=== PATIENT | female | born 1960 | race Caucasian/White ===

== ENCOUNTER 2018-12-13 09:51 | Emergency (ER) | payer OTHER ==
[~2018-12-13] VITALS: Ht 170.2 cm; Wt 124.3 kg
[2018-12-13 09:57] VITALS: BP 187/96
[2018-12-13] MEDS ORDERED: PREDNISONE 5 MG5 M1 PO (10:02)
[2018-12-13] MEDS ORDERED: METHOTREXA25 MG/1 M3 IM (10:02)
[2018-12-13] MEDS ORDERED: FOLIC ACID1 MG PO (10:09)
[2018-12-13] MEDS ORDERED: FLEXERIL PO (10:09)
[2018-12-13] MEDS ORDERED: NORVASC5 MG PO (10:10)
[2018-12-13] MEDS ORDERED: CELEXA20 MG PO (10:10)
[2018-12-13] MEDS ORDERED: OMEPRAZOLE 20 M20 M1 PO (10:11)
[2018-12-13] MEDS ORDERED: ACYCLOVIR 200200 MG PO (10:43)
[2018-12-13] MEDS ORDERED: PREDNISONE 5 MG5 MG PO (10:43)
[2018-12-13] MEDS ORDERED: HYDROCODON-ACE1 EAC7 PO (10:43)
--- NOTE | 2018-12-15 13:07 | EKG ---
[place] [address] ELECTROCARDIOGRAM REPORT Name: MITUL MATA [id number] Admission: 12/13/18 Attend Phys: Discharge: 12/13/18 Date of : 56 Report #: [id number] THIS REPORT FOR: //name// [facility] ED Test Date: 2018-12-13 Test Time: 09:57:37 Pat Name: MITUL MATA Department: Room: Gender: F Child Nurse: : 1960 Requested By: Sonny Dawn Order Number: [id number] MD: Ted Singer Measurements Intervals [place] Rate: 87 P: 40 [place]: 156 QRS: 21 QRSD: 97 T: 73 QT: 338 QTc: 407 Interpretive Statements Sinus rhythm No previous ECG available for comparison Electronically Signed On 12-15-2018 13:07:07 CDT by Ted Singer [email or web address] <ELECTRONICALLY SIGNED> By: Ted Singer MD, [facility] 12/15/18 1307 0957 0957 Ted Singer MD, FACC /EPI
== END 2018-12-13 10:56 | disposition home or self-care (01) ==
LOC: M.ERS 09:51
DX: B02.9 Zoster without complications (principal); M06.9 Rheumatoid arthritis, unspecified

== ENCOUNTER 2019-02-19 10:07 | Emergency (ER) | payer OTHER ==
[~2019-02-19] VITALS: Ht 170.2 cm; Wt 121.6 kg
[~2019-02-19 10:07] MED LIST: ACYCLOVIR 200200 MG PO; CELEXA20 MG PO; FLEXERIL PO; FOLIC ACID1 MG PO; HYDROCODON-ACE1 EAC7 PO; METHOTREXA25 MG/1 M3 IM; NORVASC5 MG PO; OMEPRAZOLE 20 M20 M1 PO; PREDNISONE 5 MG5 M1 PO; PREDNISONE 5 MG5 MG PO
[2019-02-19] MEDS ORDERED: NORCO 5-325 TA1 EAC1 PO (11:19)
[2019-02-19] MEDS ORDERED: PREDNISONE 10 M10 MG PO (11:19)
[2019-02-19 11:30] VITALS: BP 168/90
== END 2019-02-19 11:33 | disposition home or self-care (01) ==
LOC: M.ERS 10:07
DX: M06.9 Rheumatoid arthritis, unspecified (principal)

== ENCOUNTER 2019-06-08 14:43 | Emergency (ER) | payer OTHER ==
[~2019-06-08] VITALS: Ht 170.2 cm; Wt 127.0 kg
[~2019-06-08 14:43] MED LIST changes: +NORCO 5-325 TA1 EAC1 PO; +PREDNISONE 10 M10 MG PO
[2019-06-08] MEDS ORDERED: NORCO 5-325 TA1 EAC1 PO (15:17)
[2019-06-08 15:37] VITALS: BP 150/94
== END 2019-06-08 15:39 | disposition home or self-care (01) ==
LOC: M.ERS 14:43
DX: M06.851 Other specified rheumatoid arthritis, right hip (principal); I10 Essential (primary) hypertension

== ENCOUNTER 2020-01-22 09:32 | Emergency (ER) | payer OTHER ==
[~2020-01-22] VITALS: Ht 170.2 cm; Wt 99.3 kg
[2020-01-22] MEDS ORDERED: NORCO 5-325 TA1 EAC2 PO (10:09)
[2020-01-22 10:14] VITALS: BP 159/74
== END 2020-01-22 10:14 | disposition home or self-care (01) ==
LOC: M.ERS 09:32
DX: G89.29 Other chronic pain (principal); I10 Essential (primary) hypertension; M06.9 Rheumatoid arthritis, unspecified

== ENCOUNTER 2020-02-10 12:28 | Inpatient (IN) | payer OTHER ==
[2020-02-10] VITALS (8 sets, daily range): BP systolic 81–153; BP diastolic 35–95
[~2020-02-10] VITALS: Ht 170.2 cm; Wt 100.2 kg
[~2020-02-10 12:28] MED LIST changes: +NORCO 5-325 TA1 EAC2 PO
[2020-02-10 12:50] LABS: HEMATOCRIT 37.4 % (37.0-47.0); HEMOGLOBIN 12.5 gm/dL (12.0-15.0); MCH 32.9 pg (26.0-34.0); MCHC 33.6 g/dL (28.0-37.0); MCV 97.9 fL (80.0-100.0); MPV 8.1 fl. (7.2-11.1); NUCLEATED RBCS 0 /100WBC; PLATELET COUNT* 315 thou/uL (150-400); RBC 3.82 mil/uL (4.20-5.00); RDW-CV 16.2 % (10.5-14.5); WBC 14.2 thou/uL (4.0-11.0)
[2020-02-10 13:00] LABS: CALCIUM 9.3 mg/dL (8.5-10.1); CREATININE 1.4 mg/dL (0.6-1.3); POTASSIUM 3.2 mmol/L (3.5-5.1)
[2020-02-10 13:03] LABS: APTT 22.9 Seconds (25.0-31.3); PROTIME 9.9 Seconds (9.20-11.50)
[2020-02-10 13:13] LABS: ALBUMIN 3.8 g/dL (3.4-5.0); CK-MB MASS 150.3 ng/mL (<0.5-3.6); MAGNESIUM 1.8 mg/dL (1.8-2.4); TOTAL BILIRUBIN 0.4 mg/dL (<0.1-1.0); TOTAL PROTEIN 7.7 g/dL (6.4-8.2)
[2020-02-10 13:19] LABS: ABSOLUTE LYMPHOCYTES 2.1 thou/uL (0.8-5.3); ABSOLUTE MONOCYTES 0.9 thou/uL (0.0-1.2); ABSOLUTE NEUTROPHILS 11.2 thou/uL (1.6-8.1); ANISOCYTOSIS 1+; PLATELET ESTIMATE ADEQUATE; POIKILOCYTOSIS 1+; POLYCHROMASIA Occasional
[2020-02-10 13:30] LABS: CHOLESTEROL 233 mg/dL (<200); HDL CHOLESTEROL 37 mg/dL (>40); LDL CHOLESTEROL 144 mg/dL (<100); TC:HDL 6.3 Ratio (Not establshd); TRIGLYCERIDE 260 mg/dL (<150); VLDL 52 mg/dL (<40)
[2020-02-10 13:33] LABS: SERUM ASSESSMENT Slight Lipemia
--- NOTE | 2020-02-10 17:50 | EKG ---
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 : 1960 Requested By: Josh Chavez Order Number: [id number] MD: Solitario Mac Measurements Intervals [place] Rate: 64 P: 33 [place]: 178 QRS: 45 QRSD: 112 T: 5 QT: 399 QTc: 412 Interpretive Statements Sinus rhythm Posterior infarct, acute (LCx) Lateral infarct, acute Minimal ST elevation, inferior leads Compared to ECG 12/13/2018 09:57:37 Myocardial infarct finding now present ST (T wave) deviation now present Electronically Signed On 02-10-2020 17:49:54 CDT by Solitario Mac [email or web address] <ELECTRONICALLY SIGNED> By: Solitario Mac MD, FACC 02/10/20 1749 1236 1236 Solitario Mac MD, FACC /EPI
[2020-02-11] VITALS (11 sets, daily range): BP systolic 84–155; BP diastolic 31–135
[2020-02-11 04:02] LABS: MCH 32.5 pg (26.0-34.0); MCHC 33.3 g/dL (28.0-37.0); MCV 97.6 fL (80.0-100.0); MPV 8.2 fl. (7.2-11.1); RBC 3.38 mil/uL (4.20-5.00); RDW-CV 15.9 % (10.5-14.5); WBC 16.2 thou/uL (4.0-11.0)
[2020-02-11 04:35] LABS: ALBUMIN 3.3 g/dL (3.4-5.0); CREATININE 1.1 mg/dL (0.6-1.3); POTASSIUM 4.1 mmol/L (3.5-5.1); TOTAL BILIRUBIN 0.4 mg/dL (<0.1-1.0); TOTAL PROTEIN 7.1 g/dL (6.4-8.2)
--- NOTE | 2020-02-11 15:11 | 2DMMODE ---
[place] [address] 2 D/M-MODE ECHOCARDIOGRAM Name: MITUL MATA Room: [address] ADM IN M.R.#: [id number] Admission: 02/10/20 Attend Phys: Simeon Jerez, Discharge: Date of : 56 Date of Service: 02/11/20 1511 Report #: [id number] THIS REPORT FOR: cc: Physician not on staff Physician not on staff Kingsley Ruiz MD [facility] ~ APPROVED REPORT Study performed: 02/11/2020 09:07:57 EXAM: Comprehensive 2D, Doppler, and color-flow Echocardiogram Patient Location: ICU BSA: 2.11 HR: 62 bpm BP: 104/59 mmHg Other Information Study Quality: Adequate Indications Myocardial Infarction 2D Dimensions IVSd: 19.68 (7-11mm) LVOT Diam: 22.54 (18-24mm) LVDd: 43.52 mm PWd: 12.21 (7-11mm) Ascending Ao: 31.97 (22-36mm) LVDs: 32.62 (25-40mm) Aortic Root: 28.39 mm Volumes Left Atrial Volume (Systole) LA ESV Index: 25.30 mL/m2 Aortic Valve AoV Peak Duke.: 1.04 m/s AO Peak Gr.: 4.35 mmHg LVOT Max P.26 mmHg AO Mean Gr.: 2.43 mmHg LVOT Mean P.00 mmHg LVOT Max V: 1.03 m/s AO V2 VTI: 19.54 cm LVOT Mean V: 0.65 m/s ABDIAS (VTI): 4.01 cm2 LVOT V1 VTI: 19.65 cm Mitral Valve E/A Ratio: 1.23 [place] [address] 2 D/M-MODE [facility]OCARDIOGRAM [facility] Room: [address] ADM IN M.R.#: [id number] Admission: 02/10/20 Attend Phys: Simeon Jerez, Discharge: Date of : 56 Date of Service: 02/11/20 1511 Report #: [id number] MV Decel. Time: 182.33 ms MV E Max Duke.: 0.98 m/s MV PHT: 52.88 ms MVA (PHT): 4.16 cm2 TDI E/Lateral E': 14.00 E/Medial E': 9.80 Medial E' Duke.: 0.10 m/s Lateral E' Duke.: 0.07 m/s Pulmonary Valve PV Peak Duke.: 0.99 m/s PV Peak Gr.: 3.92 mmHg Tricuspid Valve RAP Estimate: 5.00 mmHg TR Peak Gr.: 13.36 mmHg RVSP: 18.36 mmHg PA Pressure: 18.36 mmHg Left Ventricle The left ventricle is normal size. There are segmental wall motion abnormalities with inferobasilar and apical-lateral hypokinesis. Borderline concentric left ventricular hypertrophy. Left ventricular systolic function is mildly decreased. LVEF is 45%. The left ventricular diastolic function is normal. Right Ventricle The right ventricle is normal size. The right ventricular systolic function is normal. Atria The left atrium size is normal. The right atrium size is normal. Aortic Valve The aortic valve is normal in structure. No aortic regurgitation is present. There is no aortic valvular stenosis. Mitral Valve The mitral valve is normal in structure. Mild mitral regurgitation. No evidence of mitral valve stenosis. Tricuspid Valve The tricuspid valve is normal in structure. There is no tricuspid valve regurgitation [place] [address] 2 D/M-MODE ECHOCARDIOGRAM [facility] Room: [address] IN [facility].#: [id number] Admission: 02/10/20 Attend Phys: Simeon Jerez, Discharge: Date of : 56 Date of Service: 02/11/20 1511 Report #: [id number] The pulmonary valve is normal in structure. There is no pulmonic valvular regurgitation. Great Vessels The aortic root is normal in size. IVC is normal in size and collapses >50% with inspiration. Pericardium There is no pericardial effusion. <Conclusion> The left ventricle is normal size. Borderline concentric left ventricular hypertrophy. Left ventricular systolic function is mildly decreased. LVEF is 45%. The left ventricular diastolic function is normal. The right ventricle is normal size. The left atrium size is normal. The aortic valve is normal in structure. The mitral valve is normal in structure. Mild mitral regurgitation. The tricuspid valve is normal in structure. IVC is normal in size and collapses >50% with inspiration. There is no pericardial effusion. There are segmental wall motion abnormalities with inferobasilar and apical-lateral hypokinesis. <ELECTRONICALLY SIGNED> By: Kingsley Ruiz MD, FACC 02/11/20 151 10 10 Kingsley Ruiz MD, FACC /INF
--- NOTE | 2020-02-11 15:39 | EKG ---
[place] [address] ELECTROCARDIOGRAM REPORT Name: MITUL MATA Room: [address] ADM IN M.R.#: [id number] Admission: 02/10/20 Attend Phys: Simeon Jerez, Discharge: Date of : 56 Date of Service: 02/10/201851 Report #: [id number] THIS REPORT FOR: //name// [facility] Test Date: 2020-02-10 Test Time: 18:52:18 Pat Name: MITUL MATA Department: Room: [facility] Gender: F Scratch Finisher: BY ICU : 1960 Requested By: Kingsley Ruiz Order Number: [id number] Dianna MD: Solitario Mac Measurements Intervals [place] Rate: 73 P: 38 [place]: 126 QRS: 267 QRSD: 156 T: 69 QT: 494 QTc: 545 Interpretive Statements Sinus rhythm Nonspecific IVCD with LAD Inferior infarct, recent (LCx) Probable anterior infarct, recent Lateral leads are also involved Compared to ECG 02/10/2020 12:36:21 Intraventricular conduction delay now present Myocardial infarct finding still present ST (T wave) deviation still present Electronically Signed On 02-11-2020 15:39:18 CDT by Solitario Mac [email or web address] <ELECTRONICALLY SIGNED> By: Solitario Mac MD, FACC 02/11/20 1539 51 51 Solitario Mac MD, FACC /EPI
--- NOTE | 2020-02-11 16:56 | CARD ---
[address] [address] CARDIAC CATH REPORT Name: MITUL MATA Room: [address] ADM IN M.R.#: [id number] Admission: 02/10/20 Attend Phys: Simeon Jerez MD Discharge: Date of : 56 Report #: [id number] THIS REPORT FOR: //name// cc: Physician not on staff Physician not on staff ~ APPROVED REPORT Study performed: 02/10/2020 13:54:16 Patient Details Patient Status: ED Room #: The patient is a 59 year-old female Event Personnel Kingsley Ruiz Cpa Tax, Kayla Fuentes RN Sap Technical Developer, Simeon ChongubHitesh Becki RTR Monitor, Ivon Mancia RTR Monitor Procedures Performed Art Access - R femoral artery, Left Heart Cath w/or w/o Coronaries LHC, GEOVANNA Place w/wo Plasty Single CIRC , Hemostasis w/ Angioseal Indication Non-STEMI Risk Factors Obesity, Hypercholesterolemia Admission/Lab Medications/Medications given during procedure Angiomax IV 15 ml, Angiomax Drip IV 34.96 ml per hr, Nitroglycerin SL 0.4 mg, Nitroglycerin SL 0.4 mg, Adenosine IC 600 mcg, Effient PO 60 mg, Aspirin PO 162 mg Procedure Narrative The patient was brought emergently to the Cardiac Catheterization Laboratory and was prepped and draped in a sterile manner. The right femoral was infiltrated with 2% Lidocaine subcutaneous anesthesia. A 6F Roy sheath was inserted into the right femoral artery. Coronary angiography was performed using coronary diagnostic catheters. The right coronary system was accessed and visualized with a 6F JR4 catheter. The left coronary system was accessed and visualized with a 6F JL4 catheter. The left ventricle was accessed and visualized with a 6F Straight Pigtail catheter. Left ventricular/Aortic Valve gradient assessed [place] [address] CARDIAC CATH RE[facility] Room: [address] IN M.R.#: [id number] Admission: 02/10/20 Attend Phys: Simeon Jerez MD Discharge: Date of : 56 Report #: [id number] Pre-demployment femoral angiogram was performed . Closure device was deployed with a 6 Fr Angioseal STS. The patient tolerated the procedure well and there were no complications associated with the procedure. There was no hematoma. Intraoperative Conscious Sedation Sedation start time: 14:17 Case end Time: 16:23 Fentanyl 50 mcg Versed 4 mg Fluoro Time: 52.1 minutes Dose: DAP 333806 cGycm2 6899 mGy Contrast Type and Amount: Visipaque 520 ml Diagnostic Cath Left Main 0% narrowing LAD 90% focal mid vessel stenosis Circumflex 100% proximal occlusion with prominent intraluminal thrombus and subsequently defined marked tortuosity and calcification of the mid to distal circumflex Right Coronary Large dominant vessel with 30% proximal mid and distal narrowing Left Ventriculography Left Ventriculography was not performed. Hemodynamics The aortic pressure is 141/86 mmHg with a mean of 111 mmHg. The left ventricular pressure is 139/4 mmHg with a mean of mmHg. The left ventricular end diastolic pressure is 22 mmHg. PCI Technique Lesion Anticoagulation was achieved with Angiomax. Patient was preloaded with Angiomax IV 15 ml. Percutaneous coronary intervention was performed on the proximal circumflex artery segment. The lesion stenosis prior to intervention was 100% with CELI 0 flow. A 6FR LAUNCHER EBU 3.5 Guide Catheter was used to engage the lm ostium. A BMW 300cm Interventional Guidewire was used to cross the lesion. BALLOON DILATION A Balloon catheter Mini Trek RX 2.0 X 8 was inserted and inflated up to 5.00atm for 15seconds. A Finecross micro glide cather was used. Wires used 190 BMW, 300 BMW, 300 ProwaterFlex. A Mini Trek RX 1.2 x 8 balloon catheter was inserted and inflated up to 8 sally for 5 seconds; 8 sally for 6 seconds. A Mini Trek RX 1.5 x 8 [place] [address] CARDIAC CATH REPORT Name: ANNEMITUL CIFUENTES Room: [address] IN M.R.#: [id number] Admission: 02/10/20 Attend Phys: Simeon Jerez MD Discharge: Date of : 56 Report #: [id number] inserted and inflated up to 8 sally for 4 seconds; 10 sally for 8 seconds; 12 sally for 3 seconds. A Mini Trek RX 2.0 x 12 balloon catheter was inserted and inflated up to 8 sally for 3 seconds; 10 sally for 8 seconds; 8 sally for 4 seconds. A Trek RX 2.5 x 12 balloon catheter was inserted and inflated up to 8 sally for 6 seconds; 10 sally for 5 seconds. STENT DEPLOYMENT A drug-eluting stent [place] RX Stent 2.0X26mm was inserted and inflated up to 8.00atm for 6seconds. Additional Inflation: 10.00atm for 7seconds. Additional Inflation: 10.00atm for 7seconds. Final angiography reveals 15 % stenosis with CELI 3 flow. COMMENTS The PCI of the totally occluded circumflex was technically complex by virtue of marked calcification and tortuosity throughout the vessel with diffuse intraluminal thrombus. This required placement of a microcatheter distally with definition of intraluminal position with subsequent deployment of proximal mid and distal circumflex stents after significant lesion preparation. There was also requirement for proximal and distal infusion of intracoronary adenosine to alter micro- circulatory resistance and augment CELI flow. PCI Technique Lesion 2 Percutaneous Coronary Intervention was performed on the mid circumflex artery segment. Patient was preloaded with Angiomax IV 15 ml. The lesion stenosis prior to intervention was 100% with CELI 0 flow. A 6FR LAUNCHER EBU 3.5 Guide Catheter was used to engage the lm ostium. A BMW 300cm Interventional Guidewire was used to cross the lesion. Balloon Dilation A Balloon catheter Mini Trek RX 1.5 X 12 was inserted and inflated up to 10.00atm for 10seconds. Additional Inflation: 12.00atm for 3seconds. Additional Inflation: 14.00atm for 7seconds. Additional inflations up to 15 sally and 16 sally for 5-8 seconds. Stent Deployment A drug-eluting stent [place] RX Stent 2.0X26mm was inserted and inflated up to 8.00atm for 10seconds. Additional Inflation: 9.00atm for 7seconds. Additional Inflation: 9.00atm for 5seconds. Post Stent Deployment Balloon Dilation A Balloon catheter [place] Euphora 2.25x 12 was inserted and inflated up [facility] [address] [place] [address] CARDIAC CATH REPORT Name: MITUL MATA Room: [address] ADM IN M.R.#: [id number] Admission: 02/10/20 Attend Phys: Simeon Jerez MD Discharge: Date of : 56 Report #: [id number] to 15.00atm for 5seconds. Additional Inflation: 16.00atm for 6seconds. Additional Inflation: 18.00atm for 5seconds. Final angiography reveals 10 % stenosis with CELI 3 flow. PCI Technique Lesion 3 Percutaneous Coronary Intervention was performed on the distal circumflex artery segment. Patient was preloaded with Angiomax IV 15 ml. The lesion stenosis prior to intervention was 100% with CELI 0 flow. A 6FR LAUNCHER EBU 3.5 Guide Catheter was used to engage the lm ostium. A BMW 300cm Interventional Guidewire was used to cross the lesion. Stent Deployment A drug-eluting stent [place] RX Stent 2.0X18mm was inserted and inflated up to 8.00atm for 8seconds. Additional Inflation: 9.00atm for 6seconds. Additional Inflation: 15.00atm for 7seconds. Additional inflations 17 sally for 8 seconds; 18 sally for 6 seconds. Post Stent Deployment Balloon Dilation A Balloon catheter [place] Euphora 2.25x 12 was inserted and inflated up to 10.00atm for 6seconds. Additional Inflation: 10.00atm for 7seconds. Final angiography reveals 10 % stenosis with CELI 3 flow. Conclusion 1. Acute non-STEMI with total occlusion of the nondominant circumflex proximally 2. Severe coronary artery disease characterized by the following: A 100% proximal circumflex occlusion with prominent intraluminal thrombus and CELI 0 flow to the distal vessel B 90% mid LAD stenosis C 30% proximal mid and distal narrowing of the dominant right coronary artery 2. Moderate elevation of left ventricular end-diastolic pressure at rest 3. Successful PCI with deployment of drug-eluting stents in the proximal mid and distal circumflex with 10% residual narrowing CELI-3 [place] [address] CARDIAC CATH REPORT Name: [facility] Room: [address] IN M.R.#: [id number] Admission: 02/10/20 Attend Phys: Simeon Jerez MD Discharge: Date of : 56 Report #: [id number] flow to the distal vessel and no residual thrombus Recommendations Cardiac Risk Reduction Program Aggressive Medical Therapy Medications Administered Aspirin (any) Prasugrel Diagnostic Cath Approved by: Kingsley Ruiz MD Date/Time: 02/11/2020 16:54:04 <ELECTRONICALLY SIGNED> By: Kingsley Ruiz MD, [facility] 02/11/20 1656 55 [id number] Jacky Ruiz MD, FACC /INF
[2020-02-12] VITALS: BP 83/37
[2020-02-12 02:08] LABS: GLYCOHEMOGLOBIN (HGB A1C) 5.6 % (4.8-5.6)
[2020-02-12 04:00] VITALS: BP 108/35
[2020-02-12 05:19] LABS: CALCIUM 8.8 mg/dL (8.5-10.1); CREATININE 1.1 mg/dL (0.6-1.3); MAGNESIUM 2.1 mg/dL (1.8-2.4)
[2020-02-12 08:00] VITALS: BP 105/54
[2020-02-12] MEDS ORDERED: LIPITOR 40 MG T40 M1 PO (09:03)
[2020-02-12] MEDS ORDERED: EFFIENT10 MG PO (09:03)
[2020-02-12] MEDS ORDERED: ASPIR 8181 MG PO (09:03)
[2020-02-12] MEDS ORDERED: CARVEDILOL3.125 MG PO (09:03)
[2020-02-12] MEDS ORDERED: NITROGLYCERIN0.4 MG SUBLING (09:54)
[2020-02-12 12:06] VITALS: BP 120/51
[2020-02-12 14:25] VITALS: BP 123/71
[2020-02-12 15:10] VITALS: BP 123/71
== END 2020-02-12 15:50 | disposition home or self-care (01) | DRG 246 ==
LOC: M.CL 12:28 → M.ERS 12:28 → M.TBA-CV 15:32 → M.ICU 15:32 → M.2W 02-11 15:17
PROVIDERS: Family Medicine; Internal Medicine; Registered Nurse; ADMIT Internal Medicine; ATTEND Internal Medicine
PROC: B211YZZ Fluoroscopy of Multiple Coronary Arteries using Other Contrast (ICD-10-PCS; principal; 2020-02-10)
PROC: B41FYZZ Fluoroscopy of Right Lower Extremity Arteries using Other Contrast (ICD-10-PCS; principal; 2020-02-10)
PROC: 027036Z Dilation of Coronary Artery, One Artery with Three Drug-eluting Intraluminal Devices, Percutaneous Approach (ICD-10-PCS; principal; 2020-02-10)
PROC: 4A023N7 Measurement of Cardiac Sampling and Pressure, Left Heart, Percutaneous Approach (ICD-10-PCS; principal; 2020-02-10)
DX: I21.3 ST elevation (STEMI) myocardial infarction of unspecified site (principal); I50.21 Acute systolic (congestive) heart failure; R65.10 Systemic inflammatory response syndrome (SIRS) of non-infectious origin without acute organ dysfunction; N17.9 Acute kidney failure, unspecified; I13.0 Hypertensive heart and chronic kidney disease with heart failure and stage 1 through stage 4 chronic kidney disease, or unspecified chronic kidney disease; M06.9 Rheumatoid arthritis, unspecified; I25.110 Atherosclerotic heart disease of native coronary artery with unstable angina pectoris; M19.90 Unspecified osteoarthritis, unspecified site; F32.9 Major depressive disorder, single episode, unspecified; F41.1 Generalized anxiety disorder; E66.9 Obesity, unspecified; F17.210 Nicotine dependence, cigarettes, uncomplicated; F12.90 Cannabis use, unspecified, uncomplicated; E87.6 Hypokalemia; E11.65 Type 2 diabetes mellitus with hyperglycemia; F41.0 Panic disorder [episodic paroxysmal anxiety]; N18.2 Chronic kidney disease, stage 2 (mild); I95.2 Hypotension due to drugs; I25.5 Ischemic cardiomyopathy; E78.5 Hyperlipidemia, unspecified; Z82.49 Family history of ischemic heart disease and other diseases of the circulatory system; Z68.34 Body mass index [BMI] 34.0-34.9, adult; Z71.6 Tobacco abuse counseling; Z79.899 Other long term (current) drug therapy; Z20.828 Contact with and (suspected) exposure to other viral communicable diseases

== ENCOUNTER 2020-02-24 07:54 | Emergency (ER) | payer OTHER ==
[~2020-02-24] VITALS: Ht 170.2 cm; Wt 99.0 kg
[~2020-02-24 07:54] MED LIST changes: +ASPIR 8181 MG PO; +CARVEDILOL3.125 MG PO; +EFFIENT10 MG PO; +LIPITOR 40 MG T40 M1 PO; +NITROGLYCERIN0.4 MG SUBLING
[2020-02-24 08:15] LABS: ABSOLUTE EOSINOPHILS 0.3 thou/uL (0.0-0.7); ABSOLUTE LYMPHOCYTES 1.9 thou/uL (0.8-5.3); ABSOLUTE MONOCYTES 0.4 thou/uL (0.0-1.2); ABSOLUTE NEUTROPHILS 5.9 thou/uL (1.6-8.1); BASOPHILS 0.5 %; EOSINOPHILS 3.3 %; HEMATOCRIT 37.3 % (37.0-47.0); HEMOGLOBIN 12.3 gm/dL (12.0-15.0); LYMPHOCYTES 22.1 %; MCH 32.5 pg (26.0-34.0); MCHC 32.9 g/dL (28.0-37.0); MCV 98.6 fL (80.0-100.0); MONOCYTES 4.7 %; MPV 8.5 fl. (7.2-11.1); NUCLEATED RBCS 0 /100WBC; PLATELET COUNT* 369 thou/uL (150-400); POLYS 69.4 %; RBC 3.78 mil/uL (4.20-5.00); RDW-CV 15.2 % (10.5-14.5); WBC 8.5 thou/uL (4.0-11.0)
[2020-02-24 08:23] LABS: CALCIUM 9.4 mg/dL (8.5-10.1); CREATININE 1.5 mg/dL (0.6-1.3); POTASSIUM 4.1 mmol/L (3.5-5.1)
[2020-02-24 08:36] LABS: ALBUMIN 3.7 g/dL (3.4-5.0); CK-MB MASS 126.5 ng/mL (<0.5-3.6); TOTAL BILIRUBIN 0.6 mg/dL (<0.1-1.0)
[2020-02-24 08:37] LABS: APTT 21.8 Seconds (25.0-31.3); PROTIME 10.3 Seconds (9.20-11.50)
[2020-02-24 10:33] VITALS: BP 109/75
--- NOTE | 2020-02-24 13:49 | EKG ---
[place] [address] ELECTROCARDIOGRAM REPORT Name: MITUL MATA Room: [facility]#: [id number] Admission: 02/24/20 Attend Phys: Discharge: 02/24/20 Date of : 56 Date of Service: 02/24/20 0758 Report #: [id number] THIS REPORT FOR: //name// [facility] ED Test Date: 2020-02-24 Test Time: 07:58:06 Pat Name: MITUL MATA Department: Room: Gender: Home Visits Nurse: [place] : 1960 Requested By: Josh Chavez Order Number: [id number] MD: Kingsley Ruiz Measurements Intervals [place] Rate: 97 P: 26 [place]: 164 QRS: 115 QRSD: 96 T: 31 QT: 357 QTc: 454 Interpretive Statements Sinus rhythm Posterior infarct, indeterminate age Compared to ECG 02/10/2020 18:52:18 Intraventricular conduction delay no longer present Myocardial infarct finding still present Electronically Signed On 02-24-2020 13:48:50 CDT by Kingsley Ruiz [email or web address] <ELECTRONICALLY SIGNED> By: Kingsley Ruiz MD, [facility] 02/24/20 1348 0758 0758 Kingsley Ruiz MD, [facility] /EPI
== END 2020-02-24 10:33 | disposition home or self-care (01) ==
LOC: M.ERS 07:54
PROVIDERS: Family Medicine
DX: U07.1 COVID-19 (principal); R07.89 Other chest pain; I10 Essential (primary) hypertension; M06.9 Rheumatoid arthritis, unspecified; E66.9 Obesity, unspecified; Z68.34 Body mass index [BMI] 34.0-34.9, adult

== ENCOUNTER 2020-03-09 07:57 | Observation (INO) | payer OTHER ==
[~2020-03-09] VITALS: Ht 170.2 cm; Wt 97.1 kg
[2020-03-09] VITALS (18 sets, daily range): BP systolic 101–148; BP diastolic 43–80
[2020-03-09 08:33] LABS: ABSOLUTE EOSINOPHILS 0.3 thou/uL (0.0-0.7); ABSOLUTE LYMPHOCYTES 1.4 thou/uL (0.8-5.3); ABSOLUTE MONOCYTES 0.3 thou/uL (0.0-1.2); ABSOLUTE NEUTROPHILS 5.3 thou/uL (1.6-8.1); BASOPHILS 0.6 %; EOSINOPHILS 4.2 %; HEMATOCRIT 35.5 % (37.0-47.0); HEMOGLOBIN 11.6 gm/dL (12.0-15.0); MCH 32.4 pg (26.0-34.0); MCHC 32.6 g/dL (28.0-37.0); MCV 99.3 fL (80.0-100.0); MONOCYTES 3.9 %; MPV 8.5 fl. (7.2-11.1); NUCLEATED RBCS 0 /100WBC; PLATELET COUNT* 228 thou/uL (150-400); POLYS 72.3 %; RBC 3.57 mil/uL (4.20-5.00); RDW-CV 14.6 % (10.5-14.5); WBC 7.4 thou/uL (4.0-11.0)
[2020-03-09 08:43] LABS: CALCIUM 8.6 mg/dL (8.5-10.1); CREATININE 1.4 mg/dL (0.6-1.3); POTASSIUM 4.2 mmol/L (3.5-5.1)
[2020-03-09 08:46] LABS: APTT 23.1 Seconds (25.0-31.3); INR 0.9; PROTIME 10.1 Seconds (9.20-11.50)
[2020-03-09 08:57] LABS: ALBUMIN 3.3 g/dL (3.4-5.0); CK-MB MASS 138.3 ng/mL (<0.5-3.6); TOTAL BILIRUBIN 0.6 mg/dL (<0.1-1.0); TOTAL PROTEIN 7.4 g/dL (6.4-8.2)
--- NOTE | 2020-03-09 13:22 | CARD ---
[address] [address] CARDIAC CATH REPORT Name: MITUL MATA Room: [place] [address] ADM Claire MGlendy#: [id number] Admission: 03/09/20 Attend Phys: Kingsley Ruiz MD, Discharge: Date of : 56 Report #: [id number] THIS REPORT FOR: //name// cc: ELENA Johnson No family physician/PCP ELENA - No family physician/PCP ~ APPROVED REPORT Study performed: 03/09/2020 10:43:56 Patient Details Patient Status: Out-Patient Room #: The patient is a 59 year-old female Event Personnel Brooks Dennis RTR Monitor, Avtar Min Holkins, John Past Due Accounts Clerk, Kayla Fuentes RN RN, Georgette Bhatia RN nurse special Performed Left Heart Cath w/or w/o Coronaries [id number] Hemostasis w/ Angioseal GEOVANNA Place w/wo Plasty Single LAD [id number] Indication Unstable angina Risk Factors Obesity, Hypercholesterolemia Previous Procedures/Diagnoses Previous PCI, Previous NM Admission/Lab Medications/Medications given during procedure Lidocaine Subcut 20 ml, Midazolam (Versed) IV 1 mg, Fentanyl IV 25 mcg, Angiomax IV 15 ml, Angiomax IV 34.3 ml per hr, Nitroglycerin IC 200 mcg, Angiomax IV 4 ml, Aspirin PO 162 mg, Effient PO 30 mg Procedure Narrative The patient was brought urgently to the Cardiac Catheterization Laboratory and was prepped and draped in a sterile manner. The right femoral was infiltrated with 2% Lidocaine subcutaneous anesthesia. A [place] 6 FR sheath was inserted into the right femoral artery. Coronary angiography was performed using coronary diagnostic catheters. The right coronary system was accessed and visualized with a Diagnostic JR4 6Fr catheter. The left [place] [address] CARDIAC CATH REPORT Name: [facility] Room: [address] M.R.#: [id number] Admission: 03/09/20 Attend Phys: Kingsley Ruiz MD, Discharge: Date of : 56 Report #: [id number] and visualized with a Diagnostic JL4 6Fr catheter. The left ventricle was accessed and visualized with a Diagnostic Straight Pigtail 6Fr catheter. Left ventricular/Aortic Valve gradient assessed via catheter pullback. Left ventriculogram was performed in NICHOLS projection. Closure device was deployed with a 6 Fr Angioseal. The patient tolerated the procedure well and there were no complications associated with the procedure. There was no hematoma. Intraoperative Conscious Sedation Sedation start time: 1108 Case end Time: 1202 Fentanyl 25 mcg Versed 2 mg Fluoro Time: 14.9 minutes Dose: DAP 244440 cGycm2 2204.42 mGy Contrast Type and Amount: Visipaque 200 ml Diagnostic Cath Left Main 0% narrowing LAD 90% focal mid LAD stenosis Circumflex 30% proximal narrowing with widely patent mid circumflex sounds with 40% distal narrowing Right Coronary Dominant vessel with 30% proximal and 50% distal narrowing Left Ventriculography The left ventricle is normal in size with normal contractility. The left ventricular ejection fraction is estimated to be 55%. Left ventricular wall motion abnormalities are not present. There is no mitral insufficiency. Hemodynamics The aortic pressure is 166/70 mmHg with a mean of 106 mmHg. The left ventricular pressure is 152/-10 mmHg with a mean of mmHg. The left ventricular end diastolic pressure is 5 mmHg. There was no gradient across the aortic valve upon pullback. PCI Technique Lesion Anticoagulation was achieved with Angiomax. Percutaneous coronary intervention was performed on the mid left anterior descending artery segment. The lesion stenosis prior to intervention was 90% with CELI 3 flow. A 6FR LAUNCHER EBU 3.5 Guide Catheter was used to engage the Left ostium. A IG: ProwaterFlex 180CM Interventional Guidewire was used to cross the lesion[place] [address] CARDIAC CATH REPORT Name: MITUL MATA Room: [address] M.R.#: [id number] Admission: 03/09/20 Attend Phys: Kingsley Ruiz MD, Discharge: Date of : 56 Report #: [id number] A Balloon catheter Mini Trek RX 2.0 X 8 was inserted and inflated up to 12.00atm for 20seconds. Additional Inflation: 14.00atm for 10seconds. STENT DEPLOYMENT A drug-eluting stent [place] RX Stent 2.0X12mm was inserted and inflated up to 10.00atm for 10seconds. Additional Inflation: 14.00atm for 10seconds. Additional Inflation: 16.00atm for 10seconds. An additional drug-eluting stent [place] RX 2.0X8mm was inserted and inflated up to 12.00atm for 10 seconds. Additional inflation: 15.00 sally for 9 seconds. POST STENT DEPLOYMENT BALLOON DILATION A Balloon catheter NC Euphora 2.25x8 was inserted and inflated up to 14.00atm for 10seconds. Additional Inflation: 12.00atm for 7seconds. Final angiography reveals 0 % stenosis with CELI 3 flow. Conclusion 1. Significant coronary arteriy disease characterized by the following: A 90% mid LAD stenosis B 30% proximal circumflex narrowing with widely patent mid circumflex stents and 40% distal narrowing C dominant right coronary artery 30% proximal and 50% distal narrowing 2. Normal global left ventricular systolic function estimate ejection fraction being 55% 3. Modest systemic systolic hypertension 4. Successful PCI with deployment of sequential drug-eluting stents at the site of 90% mid LAD stenosis with 0% residual narrowing and CELI-3 flow to the distal vessel Recommendations Cardiac Risk Reduction Program Aggressive Medical Therapy [place] [address] CARDIAC CATH REPORT Name: [place], [place] Room: [place] [address] ADM Claire Carlos#: [id number] Admission: 03/09/20 Attend Phys: Kingsley Ruiz MD, Discharge: Date of : 56 Report #: [id number] Aspirin (any) Prasugrel Diagnostic Cath Approved by: Kingsley Ruiz MD Date/Time: 03/09/2020 13:21:44 <ELECTRONICALLY SIGNED> By: Kingsley Ruiz MD, FACC 03/09/20 1322 132 1322Josteve Ruiz MD, FACC /INF
[2020-03-10 00:23] VITALS: BP 111/68
[2020-03-10 04:01] VITALS: BP 113/60
[2020-03-10 05:05] LABS: HEMATOCRIT 30.3 % (37.0-47.0); MCV 100.1 fL (80.0-100.0); MPV 8.6 fl. (7.2-11.1); RBC 3.03 mil/uL (4.20-5.00); RDW-CV 15.7 % (10.5-14.5); WBC 6.3 thou/uL (4.0-11.0)
[2020-03-10 05:33] LABS: CALCIUM 8.6 mg/dL (8.5-10.1); CREATININE 1.1 mg/dL (0.6-1.3); POTASSIUM 3.8 mmol/L (3.5-5.1)
[2020-03-10 08:00] VITALS: BP 125/65
--- NOTE | 2020-03-10 10:46 | H ---
[address] [address] HISTORY AND PHYSICAL Name: ADOLFOMITUL Room: [address] Claire M.R.#: [id number] Admission: 03/09/20 Attend Phys: Kingsley Ruiz MD, Discharge: Date of : 56 Report #: [id number] THIS REPORT FOR: //name// cc: ELENA Steiner family physician/PCP ELENA Steiner family physician/PCP ~ CC: Josh Chavez [facility] physician/PCP Kingsley Ruiz DATE OF SERVICE: 03/09/2020 HISTORY OF PRESENT ILLNESS: The patient is a pleasant 59-year-old female who is now 4 weeks status post presentation with acute anterolateral myocardial infarction related to total occlusion of the circumflex. She also had a 90% mid LAD stenosis noted and a modest posterior descending branch narrowing. I performed acute intervention of stenting the circumflex with difficulty with recanalization of the vessel with CELI 3 flow through the distal vessel. She was left with an inferolateral wall segment, which was hypo to akinetic. Since then, she has experienced some chest pain, not as severe as that of her infarct, but similar to her prior ischemic discomfort. Episodes have increased somewhat in frequency, and she presented to the ER this morning with that problem. In the interim, she has been COVID positive without cough, fever, loss of taste or other symptoms to suggest acute infection. She had a negative test this past Saturday, but the rapid test is positive again this morning. The patient has underlying hypertension and hypercholesterolemia. She has been compliant with dual-antiplatelet therapy and statin. PAST MEDICAL HISTORY: Remarkable for weight excess, hypertension, and hypercholesterolemia. PHYSICAL EXAMINATION: GENERAL: Demonstrates a mildly distressed, overweight, middle-aged female. VITAL SIGNS: Blood pressure is 130/70, pulse rate is 74, and respirations are 18 per minute. NECK: Jugular venous pressure is normal. CHEST: Clear. CARDIAC: Reveals normal first and second heart sounds [place] [address] HISTORY AND PHYSICAL Name: [place], [place] Room: [address] Claire M.R.#: [id number] Admission: 03/09/20 Attend Phys: Kingsley Ruiz MD, Discharge: Date of : 56 Report #: [id number] ABDOMEN: Modestly obese. EXTREMITIES: Without edema with intact femoral, pedal, and radial pulses. IMAGING STUDIES: Chest x-ray reveals chronic interstitial changes with no acute infiltrate. LABORATORY DATA: CBC and BMP are reviewed. EKG reveals evidence of the old inferolateral scar with persistent ST-segment changes. NT-BNP remains elevated. IMPRESSION: 1. Recurrent angina, which has been unstable. 2. Coronary artery disease, status post inferolateral myocardial infarction 4 weeks ago. 3. Hypertension. 4. Hypercholesterolemia. 5. Weight excess. RECOMMENDATIONS: Given the aforementioned clinical syndrome with recrudescent angina and known coronary artery disease, I would recommend proceeding with cardiac catheterization to define the recently stented circumflex with proposed intervention to the mid LAD contingent on the findings of the catheterization. Protocols pertinent to her COVID positivity will be followed. This has been discussed with the patient. We will plan to proceed on 03/09/2020. Critical care time is 40 minutes from 09:20 to 10:00 on 03/09/2020. <ELECTRONICALLY SIGNED> By: Kingsley Ruiz MD, FACC 03/10/20 1046 1001 [id number] Ruiz MD, FACC /nt
--- NOTE | 2020-03-10 10:47 | D ---
[address] [address] DISCHARGE SUMMARY Name: MITUL MATA Room: [address] Claire M.RBalta#: [id number] Admission: 03/09/20 Attend Phys: Kingsley Ruiz MD, Discharge: Date of : 56 Report #: [id number] THIS REPORT FOR: //name// cc: ELENA - No family physician/PCP ELENA - No family physician/PCP ~ CC: [facility] physician/PCP Kingsley Ruiz DATE OF SERVICE: 03/09/2020 FINAL DISCHARGE DIAGNOSES: 1. Unstable angina. 2. Status post recent inferolateral myocardial infarction. 3. Coronary artery disease. 4. Hypertension. 5. Hyperlipidemia. 6. Weight excess. 7. Recent COVID positivity. PROCEDURES: On 03/09/2020 -- left heart catheterization, left ventriculography, selective coronary arteriography and percutaneous coronary intervention with stenting of the mid LAD. The patient is a very pleasant 59-year-old female who presented to 4 weeks ago with acute inferolateral myocardial infarction and had total occlusion of the circumflex, which was recanalized at that time. She was also noted to have a 90% mid LAD stenosis, which was not approached in the acute setting. Since then, she has experienced recrudescent angina. She has also developed COVID positivity without any symptoms or fever. She again presented to the ER on 03/09/2020 with recurrent chest discomfort compatible with unstable angina. In this context, I performed cardiac catheterization. That study demonstrated widely patent circumflex stents with a 90% mid LAD stenosis and no significant right coronary stenosis. LV function was low normal and estimated ejection fraction of 55%. I performed a PCI with deployment of 2 drug-eluting stents in the mid LAD with 0% residual narrowing at the site of previously noted 90% obstruction. There was CELI 3 flow through the distal vessel. Troponin marylin inconsequently to 0.32. LABORATORY DATA: Additional lab revealed sodium 139, potassium 3.8, BUN 14, creatinine 1.1, glucose 110. Hemoglobin 10.0, white blood cell count 6300 with 187,000 platelets. She ambulated in the hallways without difficulty and there was good hemostasis at the right femoral [place] [address] [facility] Room: [address] Terrance#: [id number] Admission: 03/09/20 Attend Phys: Kingsley Ruiz MD, Discharge: Date of : 56 Report #: [id number] DISCHARGE MEDICATIONS: The patient was discharged to home with followup with my nurse practitioner in 10 days and myself in 3 months. MEDICATIONS: At the time of discharge included the following: Methotrexate one vial weekly, folic acid 5 mg daily, cyclobenzaprine 10 mg t.i.d. p.r.n., Celexa 20 mg at bedtime, omeprazole 20 mg daily, hydrocodone/acetaminophen ([place]) 5/325 one tablet every 6 hours p.r.n. pain, Effient or prasugrel 10 mg daily, atorvastatin 40 mg daily, carvedilol 3.125 mg b.i.d., aspirin 81 mg daily and p.r.n. sublingual nitroglycerin. The patient is scheduled to return to see my nurse practitioner in 10 days and myself in 3 months, assuming interim clinical stability. Therefore, the patient is discharged to home in stable condition on the aforementioned medications with followup as iterated above. <ELECTRONICALLY SIGNED> By: Kingsley Ruiz MD, FACC 03/10/20 1047 0932 [id number] Ruiz MD, FACC /nt
[2020-03-10 12:26] VITALS: BP 123/67
--- NOTE | 2020-03-10 16:23 | EKG ---
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 : 1960 Requested By: Josh Chavez Order Number: [id number] MD: Kingsley Ruiz Measurements Intervals [place] Rate: 85 P: 33 WA: 164 QRS: 139 QRSD: 103 T: 111 QT: 350 QTc: 417 Interpretive Statements Sinus rhythm Posterior infarct, old Borderline repolarization abnormality Compared to ECG 02/24/2020 07:58:06 No significant changes Electronically Signed On 03-10-2020 16:23:36 [facility] [employer] REP by Kingsley Ruiz [email or web address] <ELECTRONICALLY SIGNED> By: Kingsley Ruiz MD, [facility] 03/10/20 1623 0803 Kingsley Ruiz MD, [facility] /EPI
== END 2020-03-10 13:20 | disposition home or self-care (01) ==
LOC: M.ERS 07:57 → M.CL 07:57 → M.ORTHSURG 13:10 → M.TBA-CV 13:10 → M.ORTHSURG 13:22
PROVIDERS: Family Medicine; ADMIT Internal Medicine; ATTEND Internal Medicine
DX: U07.1 COVID-19 (principal); I25.110 Atherosclerotic heart disease of native coronary artery with unstable angina pectoris; I10 Essential (primary) hypertension; E78.5 Hyperlipidemia, unspecified; R63.5 Abnormal weight gain; I25.2 Old myocardial infarction; E78.00 Pure hypercholesterolemia, unspecified; E66.9 Obesity, unspecified; Z68.35 Body mass index [BMI] 35.0-35.9, adult; Z79.82 Long term (current) use of aspirin; Z79.899 Other long term (current) drug therapy